=== PATIENT | male | born 1955 | race Caucasian/White ===

== ENCOUNTER 2017-11-28 04:13 | Emergency (ER) | payer SELFPAY ==
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
[2017-11-28] MEDS ORDERED: KETOROLAC 60 MG/2 ML VIAL IM ONE (04:30)
[2017-11-28] MEDS ORDERED: LIRA0.6P3 SQ (04:36)
[2017-11-28] MEDS ORDERED: blood pressure (04:36)
[2017-11-28] MEDS ORDERED: INSU100V26 IJ (04:36)
[2017-11-28] MEDS ORDERED: LIDO700A19 TD (05:30)
[2017-11-28] MEDS ORDERED: TRAM-420 PO (05:30)
--- NOTE | 2017-11-28 05:44 | RADIOLOGY IMAGING REPORT ---
FACILITY: [facility] PATIENT NAME: Temo Donovan : 1955 MR: [id number] V: [id number] EXAM DATE: ORDERING PHYSICIAN: DENILSON RIVERO TECHNOLOGIST: Location: [facility] Patient: Temo Donovan : 1955 Visit/Account:[id number] Date of Sevice: 11/28/2017 Chest and left ribs: Indication: Recent injury. Technique: Frontal and lateral views of the chest and 3 oblique views of the left ribs. Comparison: None. Skeletal and soft tissue structures: There are displaced fractures in the left third, fourth, and fif th ribs. A nondisplaced fracture of the left sixth rib is suspected. The skeletal structures are othe rwise intact. There is normal mineralization. No soft tissue defect is identified. Heart and mediastinum: Within normal limits. Lung jean baptiste: Well-expanded. No focal parenchymal opacities are identified. Pleural spaces: There is localized pleural thickening near the fractures. There is no evidence of eff usion or pneumothorax. Impression: Multiple acute left rib fractures. No evidence of pneumothorax or effusion. Report Dictated By: Tyler San MD at 11/28/2017 5:32 AM Report E-Signed By: Tyler San MD at 11/28/2017 5:40 AM WSN:[id number]
--- NOTE | 2017-11-28 05:44 | RADIOLOGY IMAGING REPORT ---
FACILITY: [facility] [place] PATIENT NAME: Temo Donovan : 1955 MR: [id number] V: [id number] EXAM DATE: ORDERING PHYSICIAN: DENILSON RIVERO TECHNOLOGIST: Location: [facility] Patient: Temo Donovan : 1955 Visit/Account:[id number] Date of Sevice: 11/28/2017 Chest and left ribs: Indication: Recent injury. Technique: Frontal and lateral views of the chest and 3 oblique views of the left ribs. Comparison: None. Skeletal and soft tissue structures: There are displaced fractures in the left third, fourth, and fif th ribs. A nondisplaced fracture of the left sixth rib is suspected. The skeletal structures are othe rwise intact. There is normal mineralization. No soft tissue defect is identified. Heart and mediastinum: Within normal limits. Lung jean baptiste: Well-expanded. No focal parenchymal opacities are identified. Pleural spaces: There is localized pleural thickening near the fractures. There is no evidence of eff usion or pneumothorax. Impression: Multiple acute left rib fractures. No evidence of pneumothorax or effusion. Report Dictated By: Tyler San MD at 11/28/2017 5:32 AM Report E-Signed By: Tyler San MD at 11/28/2017 5:40 AM WSN:[id number]
[2017-11-28] MEDS ORDERED: OXYC-865 PO (05:59)
[2017-11-28 06:00] VITALS: BP 148/91
[2017-11-28] MEDS ORDERED: LIDOCAINE 5% PATCH TP SCH (09:00)
== END 2017-11-28 06:15 | disposition home or self-care (01) ==
LOC: ER 04:56
DX: S22.42XA Multiple fractures of ribs, left side, initial encounter for closed fracture (principal); V48.0XXA Car driver injured in noncollision transport accident in nontraffic accident, initial encounter
CPT/HCPCS: 71046; 71100; 96372; 99283; J1885